=== PATIENT | male | born 1970 | race Hispanic/Latino ===

== ENCOUNTER 2021-05-10 11:10 | Outpatient (CLI) | payer OTHER ==
--- NOTE | 2021-05-10 12:10 | XRay Report ---
BILATERAL HAND 4 VIEW(S) INDICATION / CLINICAL INFORMATION: BILATERAL HAND PAIN COMPARISON: None available. FINDINGS: BONES / JOINT(S): No acute fracture or subluxation. No significant arthritis. No osseous erosions. SOFT TISSUES: No significant abnormality. ADDITIONAL FINDINGS: None. Signer Name: Mary Jo Diana MD Signed: 05/10/2021 12:05 PM Workstation Name: [id number]
--- NOTE | 2021-05-10 12:10 | XRay Report ---
RIGHT SHOULDER 3 VIEW(S) INDICATION / CLINICAL INFORMATION: RIGHT SHOULDER PAIN. COMPARISON: None available. FINDINGS: BONES / JOINT(S): No acute fracture or subluxation. Mild AC joint degenerative arthrosis. SOFT TISSUES: No significant abnormality. ADDITIONAL FINDINGS: None. Signer Name: Mary Jo Diana MD Signed: 05/10/2021 12:06 PM Workstation Name: [id number]
== END 2021-05-10 11:11 | disposition home or self-care (01) ==
LOC: XRAY 11:10
PROVIDERS: ATTEND Internal Medicine
DX: M25.511 Pain in right shoulder (principal)